=== PATIENT | male | born 2000 | race Asian ===

== ENCOUNTER 2019-06-15 14:53 | Observation (INO) | payer BC, SELFPAY ==
[2019-06-15] VITALS (16 sets, daily range): BP systolic 91–133; BP diastolic 62–85; PULSE 58–87; RESP 16–18; TEMP 36.3–37.3; O2SAT 96–100; BMI 18.8
--- NOTE | 2019-06-15 15:10 | CT_ITS ---
STUDY: CT ABDOMEN AND PELVIS WITH CONTRAST REASON FOR EXAM: Male, 19 years old. Right-sided abdominal pain RADIATION DOSAGE (If Supplied By Facility): CTDIvol = ( 7.6 ) mGy, DLP = ( 251.30 ) mGycm TECHNIQUE: CT images were obtained from the dome of the diaphragm to the symphysis pubis without oral contrast. IV 100mL Isovue-300 was administered. Sagittal and coronal images were reconstructed. Individualized dose optimization techniques were used for this CT. COMPARISON: None. FINDINGS: The visualized lung bases are unremarkable. The visualized portions of the heart are within normal limits. Normal liver. Normal gallbladder and extrahepatic biliary system. Normal spleen. Normal pancreas. Normal bilateral adrenal glands. Normal right kidney. Normal left kidney. Normal visualized stomach. Normal small intestine. Normal colon. The appendix is not visualized. Normal abdominal aorta. Normal inferior vena cava. Normal retroperitoneum. Normal urinary bladder. Normal abdominal wall. Normal osseous structures. CT/Abdomen/Pelvis WITH Contrast IMPRESSION: 1. Nonvisualization of the appendix, intermediate probability of appendicitis. 2. Otherwise unremarkable abdomen. Electronically Signed: Melissa Busby, at 17:04 EST Tel , Service support ,
--- NOTE | 2019-06-15 15:11 | ED.DCSUM_ITS ---
- ER Visit Summary Date of Service: 06/15/19 Chief Complaint: Right lower quadrant abdominal pain History of Present Illness: The patient is a 19 M who presents with right lower quadrant abdominal pain that began last night. Patient states the pain is worse today. Patient states the pain is worse with pressure. Patient states nothing is help with the pain. Patient states the pain is been constant but waxes and wanes. Patient describes the pain is sharp. Patient states the pain is localized to the right lower quadrant. Patient admits to a decreased appetite and nausea but denies any vomiting. Patient admits to some diarrhea. Patient admits to some mild dysuria. Physical Examination: Vital signs are stable. Patient is afebrile. Patient is in no acute distress. Oral mucosa is pink and moist. Neck is supple. Trachea is midline. There is no JVD. Heart was regular rate and rhythm. Lungs are clear and equal bilaterally. Abdomen is soft. Bowel sounds are normal. There is right lower quadrant tenderness. There is a positive Rovsing sign and a positive obturator sign. There is pain with heel strike. Cranial nerves II through XII are intact. There are no focal motor or sensory deficits noted. Test Results: CBC and metabolic profile were within normal limits. CT scan of the abdomen and pelvis was obtained. The appendix was not well visualized however there is intermediate probability of appendicitis. This was interpreted by the radiologist and reviewed by myself. Emergency Department Course and Treatment: Patient was given IV fluids, morphine, and Zofran. Case was discussed with Dr. Blake Dietz. He was in to evaluate the patient and will take the patient to the operating room tonight for appendicitis. If he was examining the patient patient was complaining of a red rash over his neck, chest, abdomen, and thighs. Patient was given a dose of Benadryl. Patient was not having any shortness of breath or difficulty swallowing. It is unclear if this rash is due to the morphine or IV contrast. Case was discussed with the patient's father who is a field talent qualification specialist in [place]. He was advised of the findings and will be coming to [facility]. Patient and his father understood and were agreeable with the plan. All questions were answered. Disposition: Admit to hospital Impression: Acute appendicitis This note was generated with [employer] dictation software. It may contain incorrect words, spelling, and punctuation that were not noted in review of the chart prior to signing ED Disposition - Plan for ED Patient: Disposition: Acute Care Hospital [facility] Diagnosis: Acute appendicitis
[2019-06-15] MEDS: Ondansetron 4 MG/2 ML Vial IV (15:18)
[2019-06-15] MEDS: 0.9% Normal Saline 1,000 ML 1000 ML IV (15:18)
[2019-06-15] MEDS: Morphine 4 MG/ML Syringe IV (15:19)
[2019-06-15 15:24] LABS: Absolute Lymphocyte Count 1.37 X10^3/uL (0.83-4.51); Absolute Neutrophil Count 3.6 X10^3/uL (2.0-7.7); Basophil# 0.04 X10^3/uL; Basophil% 0.7 % (0-1); Eosinophil# 0.06 X10^3/uL; Eosinophils% 1.1 % (0-5); Hematocrit 45.8 % (40-54); Hemoglobin 15.4 g/dL (13.0-16.5); Lymphocyte # 1.37 X10^3/ul (4.0); Lymphocyte % 24.3 % (19-41); Mean Corp Hgb Conc 33.6 g/dL (32-36); Mean Corpuscular Hgb 28.1 pg (27.0-32.0); Mean Corpuscular Volume 83.4 fL (80-94); Mean Platelet Vol. 9.1 fl (6.2-12.0); Monocyte# 0.52 X10^3/uL; Monocyte% 9.2 % (0-10); NRBC Flagged by Analyzer 0 % (0-5); Neutrophil # 3.62 X10^3/uL (2.7-7.7); Neutrophil % 64.3 % (47-70); Platelet Count 267 K/mm3 (150-450); RBC Distribution Width CV 12.6 % (11.6-14.6); RBC Distribution Width SD 38.3 fl (35.1-43.9); Red Blood Count 5.49 M/mm3 (4.6-6.2); White Blood Count 5.6 K/mm3 (4.4-11.0)
[2019-06-15 15:50] LABS: ALB/GLOB Ratio 1.4 RATIO (0.9-2.4); AST(SGOT) 15 U/L (15-37); Alanine Aminotransfer ALT/SGPT 19 U/L (16-61); Albumin, Serum 4.7 g/dL (3.2-5.0); Alkaline Phosphatase 71 U/L (45-117); Anion Gap 6 (5-15); BUN 8 mg/dL (7-18); BUN/Creat Ratio 8.1 RATIO (10-20); Calcium,Total 9.5 mg/dL (8.5-10.1); Chloride 105 mmol/L (98-107); Creatinine, Serum 0.98 mg/dL (0.70-1.30); EST Glomerular Filtration Rate 103 mL/min (>60); Est Glom Filt Rate - Afr Amer 125 mL/min (>60); Estimated Creatinine Clearance 92.57 ml/min; Globulin 3.4 g/dL (2.2-4.2); Glucose 103 mg/dL (74-106); Lipase 80 U/L (73-393); Potassium 3.9 mmol/L (3.5-5.1); Protein, Total 8.1 g/dL (6.4-8.2); Sodium Level 139 mmol/L (136-145)
[2019-06-15 16:17] LABS: Bacteria 0 SEEN /hpf (None Seen); Mucous, Urine 0 SEEN /hpf (<or=2+); Red Blood Cells-Urine 0 SEEN /hpf (0-5); White Blood Cells 0 SEEN /hpf (0-5)
[2019-06-15 16:18] LABS: Color, Urine Yellow (Yellow); Glucose, Dipstick Normal (Normal); Ketone-Dipstick Negative (Negative); Leukocyte Esterase-Dipstick Negative /ul (Negative); Nitrite-Dipstick Negative (Negative); Occult Blood-Urine Negative /ul (Negative); Protein-Dipstick Negative (Negative); Specific Gravity, Urine 1.005 (1.002-1.030); Urine Bilirubin Dipstick Negative (Negative); Urine Clarity Sl. Cloudy (Clear); Urine Urobilinogen Normal (Normal)
[2019-06-15 16:30] LABS: Squamous Epithelial Cells - UA 0-5 SEEN /hpf (0-5)
--- NOTE | 2019-06-15 18:00 | NURSING ---
DR CENTENO IN ROOM
[2019-06-15] MEDS: DiphenhydrAMINE 50 MG/ML Syringe 25 MG IV (18:25)
[2019-06-15] MEDS: Lactated Ringers 1,000 ML 100 ML IV (18:25)
--- NOTE | 2019-06-15 18:26 | PCM.HP.STD ---
Problem List (1) Acute appendicitis Status: Acute Qualifiers: Acute appendicitis type: unspecified acute appendicitis type Qualified Code(s): K35.80 - Unspecified acute appendicitis History of Present Illness Date of Admission: 06/15/19 The patient is a 19 year old M presents with pain since yesterday. He reports the pain was in the epigastric region yesterday and is now migrated to the right lower quadrant. He also reports that he has having anorexia and hot flashes. He reports nausea but no vomiting. Pain is in the right lower quadrant. Past Medical History Allergies No Known Allergies Allergy (Verified 06/15/19 14:53) Home Medications: Ambulatory Orders Medication Instructions Recorded NK 06/15/19 Surgical History: no surgical history Smoking Status: Light Smoker (<10/day) - *Family History Maternal History Items: No pertinent history Review of Systems Constitutional: Reports: Anorexia, Fever HEENT: Denies: Difficulty Swallowing Cardiovascular: Denies: Chest Pain Respiratory: Denies: Cough, Shortness of Breath Gastrointestinal: Reports: Abdominal Pain, Nausea. Denies: Constipation, Diarrhea, Vomiting Genitourinary: Denies: Dysuria Musculoskeletal: Denies: Joint Tenderness Skin: Reports: Rash Neurological: Denies: Balance problems Psychiatric: Denies: Anxiety, Depression VTE Information - Inpt Only VTE Present on Admission: No VTE Mechan Device Prophylaxis: SCD's Patient Problems: Active and Suspected Problems Acute appendicitis (Acute) - Physical Exam Vitals/I&O's: Vital Signs Temp Pulse Resp BP Pulse Ox 99.0 F 65 16 133/83 H 100 06/15/19 18:16 06/15/19 18:16 06/15/19 18:16 06/15/19 18:16 06/15/19 18:16 Oxygen Delivery Method Room Air Weight: 120 lb Body Mass Index (BMI) 18.8 General: Alert, Oriented x3 Neck: No JVD Lungs: Normal air movement Cardiovascular: Regular rate, Regular Rhythm Abdomen: Soft, Non-Distended, Tender Laboratory Results 06/15/19 15:12: WBC 5.6, RBC 5.49, Hgb 15.4, Hct 45.8, MCV 83.4, MCH 28.1, MCHC 33.6, RDW Std Deviation 38.3, RDW Coeff of Cynthia 12.6, Plt Count 267, MPV 9.1, Immature Gran % (Auto) 0.400, Neut % (Auto) 64.3, Lymph % (Auto) 24.3, [place] % (Auto) 9.2, Eos % (Auto) 1.1, Baso % (Auto) 0.7, Absolute Neuts (auto) 3.6, Absolute Lymphs (auto) 1.37, Nucleated RBC % 0 06/15/19 15:12: Sodium 139, Potassium 3.9, Chloride 105, Carbon Dioxide 28.0, Anion Gap 6, BUN 8, Creatinine 0.98, Estim Creat Clear Calc 92.57, Est GFR (MDRD) Af Amer 125, Est GFR (MDRD) Non-Af 103, BUN/Creatinine Ratio 8.1 L, Glucose 103, Calcium 9.5, Total Bilirubin 1.40 H, AST 15, ALT 19, Alkaline Phosphatase 71, Total Protein 8.1, Albumin 4.7, Globulin 3.4, Albumin/Globulin Ratio 1.4, Lipase 80 06/15/19 16:05: Urine Color Yellow, Urine Clarity Sl. Cloudy, Urine pH 7.0, Ur Specific [place] 1.005, Urine Protein Negative, Urine Glucose (UA) Normal, Urine Ketones Negative, Urine Occult Blood Negative, Urine Nitrite Negative, Urine Bilirubin Negative, Urine Urobilinogen Normal, Ur Leukocyte Esterase Negative, Urine RBC 0 SEEN, Urine WBC 0 SEEN, Ur Squamous Epith Cells 0-5 SEEN, Urine Bacteria 0 SEEN, Urine Mucus 0 SEEN Current Medications Piperacillin Sod/Tazobactam (Sod 3.375 gm/ Sodium Chloride) 50 mls @ 12.5 mls/hr IV Q8 [facility] Lactated Ringer's () 1,000 mls @ 100 mls/hr IV .Q10H [facility] Morphine Sulfate () 2 - 4 mg IV Q2H PRN PRN PRN Reason: Pain Score 4-10/10 Ondansetron HCl (Zofran) 4 mg IV Q6H PRN PRN PRN Reason: NAUSEA Assessment/Plan All Active Problems Acute appendicitis (Acute) 19-year-old male with possible acute appendicitis 1. The patient does have all the signs and symptoms of appendicitis. He has anorexia, rising side, migrating pain, hot flashes, nausea. The patient did not have an elevated white count or left shift and his CT scan was nondiagnostic with nonvisualization of the appendix. He is a very thin individual. I believe I do see the appendix and it appears fluid-filled. 2. I discussed observation versus exploratory laparoscopy with the patient in detail. I discussed the risks including but not limited to bleeding, infection, injury to surrounding structures such as the bowels or ureter. The patient understands the risks and I discussed it with the patient and his father. They both decided to proceed with exploratory laparoscopy and appendectomy. 3. The patient is currently experiencing the onset of a rash on his neck, trunk, legs. This is new since he has been admitted to the hospital. This is likely due to the IV contrast or the morphine. I will start some Zosyn and he is getting Benadryl for the rash. Blake Dietz MD Pager: [facility] [address] [place] [address], [address] [place] [phone] Office:
[2019-06-15] MEDS: Bupiv/Epi 0.25% 30 ML Vial (20:10)
--- NOTE | 2019-06-15 20:15 | OP.PCM_ITS ---
Problem List (1) Acute appendicitis Status: Acute Qualifiers: Acute appendicitis type: unspecified acute appendicitis type Qualified Code(s): K35.80 - Unspecified acute appendicitis Report of Operation Date of Procedure: 06/15/19 Pre-Operative Diagnosis: Acute appendicitis Post-Operative Diagnosis: Same Surgery/Procedure Performed:: Laparoscopic appendectomy Specimen's removed: Appendix Description of Procedure: The patient was brought into the operating room and general anesthesia was induced. The left arm was tucked and the abdomen was prepped and draped in usual sterile fashion. A small midline incision was made superior to the umbilicus and deepened to the level of the fascia. The fascia was elevated and incised. The peritoneum was also elevated and incised. A finger sweep was performed and a balloon trocar was placed into the abdomen and inflated. The abdomen was insufflated to 15 mmHg and the camera was inserted and the abdomen was inspected for any injuries upon entering the abdomen. There were none. The patient was placed in Trendelenburg position and a 5 mm ports placed in the left lower quadrant and suprapubic areas under direct visualization. Next using atraumatic bowel graspers the appendix was identified. The appendix was grasped and elevated and a harmonic scalpel was used to take down the mesoappendix. A stapler was used to come across the base of the appendix. The appendix was then placed in Endo Catch bag and removed through the umbilical incision. The staple line was inspected and found to be hemostatic and intact. The 2 5 mm ports are removed under direct visualization. The balloon trocar was deflated and removed and all the air was removed from the abdomen. The umbilical incision fascia was closed with an 0 Vicryl [id number] suture. The incisions were then irrigated with saline and dried. Local anesthetic was injected into the inc ision sites. The skin incisions were then closed with interrupted 4-0 Monocryl suture and Steri-Strips. Bandages were applied and the patient was awoken and taken to PACU in stable condition. Patient tolerated the procedure well. - Admit VTE Documentation VTE Mechan Device Prophylaxis: SCD's
[2019-06-15] MEDS: HYDROmorphone 0.5 MG/0.5 ML SYRINGE IV (22:10)
--- NOTE | 2019-06-16 | APP_PTH ---
PATIENT: ALTON MENDOZA LOC: MS3 U#:[id number] AGE/SX: 19/M ROOM: NC313 RE06/15/[address]: Dr. Blake Dietz MD : 2000 BED: 1 DIS: 06/16/2019 SPEC #: [id number] RECD: 06/16/19 12:44 STATUS: EUFEMIA REQ #: [id number] CRISTY: 06/16/19 00:[address]: Blake Dietz DEPT: SURGICAL PATHOLOGY RECD BY: Jon Rivas ENTERED: 06/16/19 12:44 SP TYPE: APPENDIX OTHR DR: Dr. Modesto Richardson MD Tissues: Appendix, NOS Procedures: Surgery Specimen Level III HEADER OPERATION: Laparoscopic appendectomy PRE-OP DIAGNOSIS: Acute appendicitis TISSUE SUBMITTED: Appendix MICROSCOPIC DIAGNOSIS Appendix, appendectomy: Acute appendicitis. AM:mary 06/17/19 MICROSCOPIC DESCRIPTION Slides are reviewed. GROSS DESCRIPTION Received is one container labeled with the patient's name and designated appendix. The specimen consists of a C-shaped appendix measuring 9 cm in length and up to 0.5 cm in diameter. The serosa is congested. No obvious perforation is identified. The lumen contains fecal material. No fecalith is identified. State'S Attorney sections are submitted in one cassette. / SJ:rg 06/16/19 TC:2 CPT: 15015
[2019-06-16] MEDS: HYDROmorphone 0.5 MG/0.5 ML SYRINGE IV ×3 (00:10→05:44)
[2019-06-16] MEDS: Acetaminophen 325 MG Tablet 650 MG PO (00:13)
[2019-06-16 01:43] VITALS: BP 120/75; PULSE 69; RESP 16; TEMP 37; O2SAT 96
[2019-06-16 05:30] VITALS: BP 112/69; PULSE 70; RESP 16; TEMP 36.8; O2SAT 98
--- NOTE | 2019-06-16 08:11 | PN.SURG_ITS ---
Patient Problems: Active and Suspected Problems Acute appendicitis (Acute) Subjective: Patient is doing well this morning and his right lower quadrant pain has resolved. - Physical Exam Vitals/I&O's: Vital Signs Temp Pulse Resp BP Pulse Ox 98.2 F 70 16 112/69 98 06/16/19 05:30 06/16/19 05:30 06/16/19 05:30 06/16/19 05:30 06/16/19 05:30 Oxygen Delivery Method Room Air Weight: 120 lb Body Mass Index (BMI) 18.8 Intake and Output for Last 24 Hours 06/14/19 06/15/19 06/16/19 23:59 23:59 23:59 Intake Total 1050 / 1590 980 / 980 Output Total 600 / 600 Balance 1050 / 1290 380 / 380 General: Alert, Oriented x3 Lungs: Normal air movement Abdomen: Soft, Non-Distended, Tender - Appropriately and tender at the incision sites Laboratory Results 06/15/19 15:12: WBC 5.6, RBC 5.49, Hgb 15.4, Hct 45.8, MCV 83.4, MCH 28.1, MCHC 33.6, RDW Std Deviation 38.3, RDW Coeff of Cynthia 12.6, Plt Count 267, MPV 9.1, Immature Gran % (Auto) 0.400, Neut % (Auto) 64.3, Lymph % (Auto) 24.3, [place] % (Auto) 9.2, Eos % (Auto) 1.1, Baso % (Auto) 0.7, Absolute Neuts (auto) 3.6, Absolute Lymphs (auto) 1.37, Nucleated RBC % 0 06/15/19 15:12: Sodium 139, Potassium 3.9, Chloride 105, Carbon Dioxide 28.0, Anion Gap 6, BUN 8, Creatinine 0.98, Estim Creat Clear Calc 92.57, Est GFR (MDRD) Af Amer 125, Est GFR (MDRD) Non-Af 103, BUN/Creatinine Ratio 8.1 L, Glucose 103, Calcium 9.5, Total Bilirubin 1.40 H, AST 15, ALT 19, Alkaline Phosphatase 71, Total Protein 8.1, Albumin 4.7, Globulin 3.4, Albumin/Globulin Ratio 1.4, Lipase 80 06/15/19 16:05: Urine Color Yellow, Urine Clarity Sl. Cloudy, Urine pH 7.0, Ur Specific [place] 1.005, Urine Protein Negative, Urine Glucose (UA) Normal, Urine Ketones Negative, Urine Occult Blood Negative, Urine Nitrite Negative, Urine Bilirubin Negative, Urine Urobilinogen Normal, Ur Leukocyte Esterase Negative, Urine RBC 0 SEEN, Urine WBC 0 SEEN, Ur Squamous Epith Cells 0-5 SEEN, Urine Bacteria 0 SEEN, Urine Mucus 0 SEEN Current Medications Acetaminophen (Tylenol) 650 mg PO Q4H PRN PRN PRN Reason: Pain or Fever Last Admin: 06/16/19 00:13 Dose: 650 mg Documented by: Hydromorphone HCl (Dilaudid Inj) 0.5 mg IV Q2H PRN PRN PRN Reason: Pain Score 4-10/10 Last Admin: 06/16/19 05:44 Dose: 0.5 mg Documented by: Sodium Chloride () 250 mls @ 15 mls/hr IV .[id number] PRN PRN Reason: Saline Flush Sodium Chloride () 250 mls @ 15 mls/hr IV .[id number] PRN PRN Reason: Additional IVPB Infusion Ibuprofen (Motrin) 600 mg PO Q6H PRN PRN PRN Reason: Pain Score 1-10/10 Influenza Virus Vaccine Quadrival (Flucelvax /Fluzone ) 0.5 ml IM .ONCE ONE Stop: 06/16/19 10:01 Ondansetron HCl (Zofran) 4 mg IV Q6H PRN PRN PRN Reason: NAUSEA Sodium Chloride () 10 - 40 ml IV UD PRN PRN Reason: SALINE FLUSH Medical Necessity - Tobacco Use Smoking Status: Light Smoker (<10/day) Tobacco Use: Cigarettes Assessment/Plan All Active Problems Acute appendicitis (Acute) 19-year-old male with acute appendicitis 1. Patient is doing well status post laparoscopic appendectomy. If he tolerates a diet today he may be discharged home. Blake Dietz MD Pager: [facility] [address] [place] [address], [address] [place] [address] Office:
--- NOTE | 2019-06-16 08:12 | DCINST_ITS ---
Discharge Diet: Light diet - advance as tolerated Discharge Activity: May Not Drive - for 3-5 days or while taking narcotic pain meds., May Shower Lifting Restrictions: 20 lbs for 2 weeks Call your doctor if your incision/area has: Continuous Slow Oozing, Sudden Increased Bleeding, Increased Pain/ Swelling, Increased Redness, Foul Smelling Discharge Call your doctor if you observe: Fever of 101 or Higher Suture Line Care: Avoid Pulling/Pushing, Avoid Pinching/Bending Additional Dressing/Incision Instructions:: Keep dressing clean and dry. Change or remove dressing in 2 days. Leave steri strips for 1 week. May protect with a gauze bandaid. Medications to take at Discharge Acetaminophen [Tylenol Tablet] 650 mg PO Q4H PRN PRN tablet 06/16/19 Ibuprofen [Motrin] 600 mg PO Q6H PRN PRN tablet 06/16/19 Allergies/Adverse Reactions: Allergies Iodinated Contrast Media [DYEE] Allergy (Verified 06/15/19 20:58) Rash morphine Allergy (Verified 06/15/19 20:58) Rash Primary Care Physician: Modesto Richardson MD [Primary Care Provider] - Test Results: Test results from this visit will be discussed in further detail at your follow- up appointment, if applicable. Please Follow Up With: Blake Dietz MD When: Please call to schedule 2 week follow up appointment. [phone]
[2019-06-16] MEDS: Ibuprofen 600 MG Tablet PO (09:07)
[2019-06-16 09:10] VITALS: PULSE 60
[2019-06-16 09:18] VITALS: BP 124/89; PULSE 66; RESP 16; TEMP 36.3; O2SAT 100
== END 2019-06-16 09:49 | disposition home or self-care (01) ==
LOC: ED 15:59 → SDC 18:18 → AC 18:18 → MS3 18:53 → SDC 18:54 → MS3 18:54
PROVIDERS: Admitting Provider Surgery; Emergency Provider Emergency Medicine; PCP Pediatrics; Referring Provider Surgery; Visit Provider Surgery
PROC: 0DTJ4ZZ Resection of Appendix, Percutaneous Endoscopic Approach (ICD-10-PCS; CPT 44970; principal; 2019-06-15 19:15)
DX: K35.80 Unspecified acute appendicitis (principal); F17.200 Nicotine dependence, unspecified, uncomplicated; R21 Rash and other nonspecific skin eruption; J45.909 Unspecified asthma, uncomplicated
CPT/HCPCS: 00840; 44970; 74177; 80053; 81001; 83690; 85025; 88304; 96361; 96374; 96375; 96376; 99218; 99283; J7030; J7120; Q9967; A4216; C1760; G0378; J2405

== ENCOUNTER 2019-06-27 14:35 | Emergency (ER) | payer BC, SELFPAY ==
[2019-06-15 21:43] VITALS: BMI 18.8
[2019-06-27 14:35] VITALS: BP 140/81; PULSE 98; RESP 16; TEMP 36.7; O2SAT 97; BMI 18.1
--- NOTE | 2019-06-27 15:04 | ED.DCSUM_ITS ---
- ER Visit Summary Date of Service: 06/27/19 Chief Complaint: Appendectomy wound bleeding History of Present Illness: The patient is a 19 M postop day [address] Dietz. Patient has had bleeding from the wound since the surgery. He saw his surgeon in the middle of last week, and there was no reason for concern. He was advised to call his surgeon if he had continued bleeding. He attempted to call the office on Friday but could not get through. He had some bleeding last night, Friday night, and so he presented to the ED today. No other associated symptoms. Physical Examination: Umbilical wound is closed and intact. Surrounding skin appears normal. There is induration deep to the wound approximately silver dollar sized. The middle part of the wound shows that the scab has fallen off, but there is no active bleeding at this time. No sign of pus or other drainage. Test Results: None indicated Emergency Department Course and Treatment: Patient was discussed with Dr. Deo almaguer. No reason for concern. Follow-up in the office. Call [phone] if you are unable to reach anyone for the on-call surgeon. Patient will be discharged. Treatment Plan: As above Disposition: Discharge Impression: Abdominal wall hematoma This note was generated with [employer] dictation software. It may contain incorrect words, spelling, and punctuation that were not noted in review of the chart prior to signing ED Disposition - Plan for ED Patient: Referrals: Modesto Richardson MD [Primary Care Provider] -
--- NOTE | 2019-06-27 15:06 | DCINST.ED_ITS ---
ED Disposition - Plan for ED Patient: Instructions: POST OP WOUND CHECK, Bleeding Referrals: Blake Dietz MD [STAFF PHYSICIAN] - Additional Instructions: Call [phone] for the production drilling machine operator surgeon if you have trouble reaching anyone through the office number
--- NOTE | 2019-06-27 15:06 | ED.DEP ---
ED Disposition - Plan for ED Patient: Instructions: POST OP WOUND CHECK, Bleeding Referrals: Blake Dietz MD [STAFF PHYSICIAN] - Additional Instructions: Call [phone] for the automotive sales professional surgeon if you have trouble reaching anyone through the office number
== END 2019-06-27 15:10 | disposition home or self-care (01) ==
LOC: ED 14:48
PROVIDERS: Emergency Provider Emergency Medicine; PCP Pediatrics
DX: L76.32 Postprocedural hematoma of skin and subcutaneous tissue following other procedure (principal); Z72.0 Tobacco use
CPT/HCPCS: 99282